=== PATIENT | female | born 1960 | race Caucasian/White ===

== ENCOUNTER 2018-04-20 14:20 | Inpatient (IN) | payer OTHER ==
[~2018-04-20] VITALS: Ht 154.9 cm; Wt 69.9 kg
[2018-04-20 14:25] VITALS: BP 155/82
[2018-04-20] MEDS ORDERED: ASPIR 8181 MG PO (14:31)
[2018-04-20] MEDS ORDERED: LIPITOR40 MG PO (14:31)
[2018-04-20] MEDS ORDERED: PRINIVIL10 MG PO (14:31)
[2018-04-20] MEDS ORDERED: NITROGLYCERIN0.4 MG SUBLING (14:31)
[2018-04-20] MEDS ORDERED: LOPRESSOR25 PO (14:32)
[2018-04-20] MEDS ORDERED: OMEPRAZOLE 20 M20 M1 PO (14:32)
[2018-04-20 15:12] LABS: INFLUENZA A ANTIGEN None Detected (None Detect); INFLUENZA B ANTIGEN None Detected (None Detect)
[2018-04-20 15:40] LABS: ABSOLUTE BASOPHILS 0.1 thou/uL (0.0-0.2); ABSOLUTE EOSINOPHILS 0.2 thou/uL (0.0-0.7); ABSOLUTE LYMPHOCYTES 3.5 thou/uL (0.8-5.3); ABSOLUTE MONOCYTES 0.6 thou/uL (0.0-1.2); ABSOLUTE NEUTROPHILS 6.5 thou/uL (1.6-8.1); BASOPHILS 0.6 %; EOSINOPHILS 1.5 %; HEMATOCRIT 45.6 % (37.0-47.0); HEMOGLOBIN 15.8 gm/dL (12.0-15.0); LYMPHOCYTES 32.3 %; MCH 31.2 pg (26.0-34.0); MCHC 34.6 g/dL (28.0-37.0); MCV 90.3 fL (80.0-100.0); MONOCYTES 5.7 %; MPV 8.2 fl. (7.2-11.1); NUCLEATED RBCS 0 /100WBC; PLATELET COUNT* 289 thou/uL (150-400); POLYS 59.9 %; RBC 5.06 mil/uL (4.20-5.00); RDW-CV 13.1 % (10.5-14.5); WBC 10.8 thou/uL (4.0-11.0)
[2018-04-20 15:45] LABS: CALCIUM 9.4 mg/dL (8.5-10.1); CREATININE 0.8 mg/dL (0.6-1.3); POTASSIUM 4.1 mmol/L (3.5-5.1)
[2018-04-20 15:59] LABS: TOTAL BILIRUBIN 0.3 mg/dL (<0.1-1.0); TOTAL PROTEIN 7.4 g/dL (6.4-8.2)
[2018-04-20 20:40] VITALS: BP 119/71
[2018-04-20 22:00] VITALS: BP 100/71
[2018-04-21] VITALS: BP 106/65
[2018-04-21 04:00] VITALS: BP 114/62
--- NOTE | 2018-04-21 04:04 | NUR ---
RECEIVED REPORT FROM ED RN. PT TRANSFERRED TO 218. PT A&OX4. VSS. ADMISSION HISTORY & PHYSICAL ASSESSMENT COMPLETED AND CHARTED. PT ON O2 AT 2L NC WITH 92% O2 SAT. PT TRACING SR ON TELE. PT UP ADLIB TO RESTROOM. ORIENTED TO ROOM & CALL LIGHT. FALL FORM SIGNED. PT RESTED WELL ON BED. HOURLY ROUNDING OBSERVED. CALL LIGHT WITHIN REACH.
[2018-04-21 08:00] VITALS: BP 125/69
--- NOTE | 2018-04-21 11:00 | NUR ---
ASSUMED CARE OF PATIENT THIS AM AT 0730. PATIENT IS ALERT AND ORIENTED X 4 THIS AM. SHE C/O A HEAD ACHE THIS AM. TELE SHOWS NSR. PATIENT IS UP IN THE ROOM, PATIENT TAKEN TO RADIOLOGY PER W/C FOR A CT AND RETURNED. PATIENT IS RESTING IN BED AT THIS TIME. NO FALLS OR INJURY.
[2018-04-21 12:20] VITALS: BP 121/59
[2018-04-21 15:46] VITALS: BP 105/37
[2018-04-21 20:00] VITALS: BP 95/85
[2018-04-22] VITALS: BP 95/54
[2018-04-22 04:00] VITALS: BP 88/60
[2018-04-22 05:00] VITALS: BP 94/62
--- NOTE | 2018-04-22 05:17 | NUR ---
ASSUMED CARE OF PT AFTER REPORT AT 1930. PT A&OX4. VSS. PHYSICAL ASSESSMENT COMPLETED AND CHARTED. PT ON RA WITH 92% O2 SAT. PT TRACING SR ON TELE. PT UP ADLIB TO RESTROOM. DENIES ANY PAIN OR SOA. PT RESTED WELL ON BED. HOURLY ROUNDING OBSERVED. CALL LIGHT WITHIN REACH.
[2018-04-22 07:52] VITALS: BP 99/63
[2018-04-22] MEDS ORDERED: CEFDINIR300 MG PO (09:59)
[2018-04-22] MEDS ORDERED: PREDNISONE 10 M10 M1 PO (09:59)
[2018-04-22] MEDS ORDERED: TESSALON PERLE100 MG PO (09:59)
[2018-04-22] MEDS ORDERED: VENTOLIN HFA 1818 GM INH (09:59)
[2018-04-22] MEDS ORDERED: AZITHROMYCIN 2250 MG PO (09:59)
[2018-04-22 10:06] LABS: HEMATOCRIT 41.5 % (37.0-47.0); HEMOGLOBIN 13.9 gm/dL (12.0-15.0); MCH 30.2 pg (26.0-34.0); MCHC 33.4 g/dL (28.0-37.0); MCV 90.6 fL (80.0-100.0); MPV 7.8 fl. (7.2-11.1); NUCLEATED RBCS 0 /100WBC; PLATELET COUNT* 282 thou/uL (150-400); RBC 4.59 mil/uL (4.20-5.00); RDW-CV 13.2 % (10.5-14.5)
[2018-04-22 10:10] LABS: CREATININE 0.9 mg/dL (0.6-1.3); MAGNESIUM 1.9 mg/dL (1.8-2.4); POTASSIUM 3.8 mmol/L (3.5-5.1)
[2018-04-22 10:42] VITALS: BP 99/63
[2018-04-22 10:54] LABS: ABSOLUTE BASOPHILS 0.2 thou/uL (0.0-0.2); ABSOLUTE LYMPHOCYTES 0.9 thou/uL (0.8-5.3); ABSOLUTE NEUTROPHILS 16.9 thou/uL (1.6-8.1); MACROCYTES Occasional; PLATELET ESTIMATE ADEQUATE
[2018-04-22 10:55] LABS: CLUMPED PLTS RARE
[2018-04-22 10:56] LABS: BURR CELLS 1+
[2018-04-22 10:57] LABS: POIKILOCYTOSIS 1+
--- NOTE | 2018-04-22 11:43 | NUR ---
ORDER RECEIVED TO DISCHARGEW PATIENT HOME TO SELF CARE. MED REC, MEDICATION EDUCATION, STROKE EDUCATION, ADN NEED FOR FOLLOW APPOINTMET WITH PRIMARY CARE WITHIN 1-2 WEEKS. IV AND TELEMTRY PACK REMOVED. PATIENT GIVEN AMPLE TIME TO DISCUSS MEDICATIONS AND HAVE ALL QUESTIONS ANSWERED. HOULRY ROUNDING COMPLETD FOR PATIENT SAFETY AND PATIENT IS IN NO APPARENT SIGNS OF DISTRESS AT THIS TIME. PATINET WILL BE TAKEN VIA WHEELCHAIR TO AWAITNG CAR BY NURSING STAFF AND WITH FAMILY PRESENT AT DISCHRGE.
--- NOTE | 2018-04-22 13:40 | EKG ---
[place] [address] ELECTROCARDIOGRAM REPORT Name: TUNDE COPELAND Room: [address] IN [facility].#: [id number] Admission: 04/20/18 Attend Phys: Amador Tamayo Discharge: 04/22/18 Date of : 64 Report #: [id number] THIS REPORT FOR: //name// [facility] ED Test Date: 2018-04-20 Test Time: 14:38:33 Pat Name: TUNDE COPELAND Department: Room: [facility] Gender: F Biotechnician: BALJEET : 1960 Requested By: Oksana Abrams Order Number: [id number] MD: Stuart Vaughan Measurements Intervals [place] Rate: 78 P: 43 [place]: 154 QRS: 79 QRSD: 90 T: -45 QT: 383 QTc: 437 Interpretive Statements Sinus rhythm Abnrm T, consider ischemia, anterolateral lds No previous ECG available for comparison Electronically Signed On 04-22-2018 13:39:53 TIRE STRIPPER by Stuart Vaughan [email or web address] <ELECTRONICALLY SIGNED> By: Stuart Vaughan MD, [facility] 04/22/18 1339 [id number] 1438 Stuart Vaughan MD, [facility] /EPI
== END 2018-04-22 12:00 | disposition home or self-care (01) | DRG 193 ==
LOC: M.ERS 14:20 → M.TBA-ER 18:15 → M.2W 18:15
PROVIDERS: Internal Medicine; Nurse Practitioner Family; ADMIT Internal Medicine
DX: J15.9 Unspecified bacterial pneumonia (principal); J96.01 Acute respiratory failure with hypoxia; J44.0 Chronic obstructive pulmonary disease with (acute) lower respiratory infection; J20.9 Acute bronchitis, unspecified; K21.9 Gastro-esophageal reflux disease without esophagitis; F17.210 Nicotine dependence, cigarettes, uncomplicated; I25.10 Atherosclerotic heart disease of native coronary artery without angina pectoris; Z79.899 Other long term (current) drug therapy; I25.2 Old myocardial infarction; Z95.5 Presence of coronary angioplasty implant and graft; Z79.82 Long term (current) use of aspirin; Z90.710 Acquired absence of both cervix and uterus; Z88.8 Allergy status to other drugs, medicaments and biological substances; Z91.011 Allergy to milk products

== ENCOUNTER → 2019-01-26 | Outpatient (CLI) | payer OTHER ==
[~2019-01-26] VITALS: Ht 154.9 cm; Wt 68.5 kg
[~2019-01-26] MED LIST: ASPIR 8181 MG PO; AZITHROMYCIN 2250 MG PO; CEFDINIR300 MG PO; LIPITOR40 MG PO; LOPRESSOR25 PO; NITROGLYCERIN0.4 MG SUBLING; OMEPRAZOLE 20 M20 M1 PO; PREDNISONE 10 M10 M1 PO; PRINIVIL10 MG PO; TESSALON PERLE100 MG PO; VENTOLIN HFA 1818 GM INH
[2019-01-26 07:57] VITALS: BP 110/67
[2019-01-26 08:24] LABS: HEMATOCRIT 44.3 % (37.0-47.0); HEMOGLOBIN 15.4 gm/dL (12.0-15.0); MCH 31.1 pg (26.0-34.0); MCHC 34.7 g/dL (28.0-37.0); MCV 89.6 fL (80.0-100.0); MPV 7.4 fl. (7.2-11.1); RBC 4.95 mil/uL (4.20-5.00); WBC 9.3 thou/uL (4.0-11.0)
[2019-01-26 08:35] LABS: ANION GAP 8 mmol/L (7-16); BUN 15 mg/dL (7-18); CALCIUM 8.9 mg/dL (8.5-10.1); CHLORIDE 105 mmol/L (98-107); CO2 29 mmol/L (21-32); CREATININE 0.7 mg/dL (0.6-1.3); GLUCOSE 100 mg/dL (70-99); POTASSIUM 4.1 mmol/L (3.5-5.1); SODIUM 142 mmol/L (136-145)
[2019-01-26 08:41] LABS: APTT 26.4 Seconds (25.0-31.3)
[2019-01-26 08:43] LABS: ALBUMIN 3.5 g/dL (3.4-5.0); ALKALINE PHOSPHATASE 110 U/L (46-116); CHOLESTEROL 144 mg/dL (<200); HDL CHOLESTEROL 52 mg/dL (>40); LDL CHOLESTEROL 77 mg/dL (<100); SERUM ASSESSMENT Clear; SGOT 16 U/L (15-37); SGPT 34 U/L (30-65); TC:HDL 2.8 Ratio (Not establshd); TOTAL BILIRUBIN 0.4 mg/dL (<0.1-1.0); TOTAL PROTEIN 6.8 g/dL (6.4-8.2); TRIGLYCERIDE 76 mg/dL (<150); VLDL 15 mg/dL (<40)
--- NOTE | 2019-01-26 11:11 | EKG ---
[place] [address] ELECTROCARDIOGRAM REPORT Name: TUNDE COPELAND Room: [facility]#: [id number] Admission: 01/26/19 Attend Phys: Mani Frazier MD Discharge: Date of : 64 Report #: [id number] THIS REPORT FOR: //name// [facility] Test Date: 2019-01-26 Test Time: 08:51:34 Pat Name: TUNDE COPELAND Department: Room: Gender: F Desktop Support Technician: : 1960 Requested By: Jus Falcon Order Number: [id number] Mervat MD: Mani Frazier Measurements Intervals [place] Rate: 56 P: 28 [place]: 163 QRS: 67 QRSD: 89 T: 10 QT: 437 QTc: 422 Interpretive Statements Sinus rhythm Nonspecific T abnormalities, diffuse leads Compared to ECG 04/20/2018 14:38:33 T-wave abnormality now present Possible ischemia no longer present Electronically Signed On 01-26-2019 11:11:07 CDT by Mani Frazier [email or web address] <ELECTRONICALLY SIGNED> By: Mani Frazier MD, [facility] 01/26/19 1111 D: 10850 0 Mani Frazeir MD, FAC /EPI
[2019-01-26 12:39] VITALS: BP 127/61
[2019-01-26 12:55] VITALS: BP 119/72
[2019-01-26 13:11] VITALS: BP 122/71
[2019-01-26 13:26] VITALS: BP 118/73
[2019-01-26 14:20] VITALS: BP 133/67
--- NOTE | 2019-01-27 16:43 | CARD ---
[address] [address] CARDIAC CATH REPORT Name: TUNDE COPELAND Jaun Room: [facility]#: [id number] Admission: 01/26/19 Attend Phys: Mani Frazier MD Discharge: Date of : 64 Report #: [id number] THIS REPORT FOR: //name// APPROVED REPORT Study performed: 01/26/2019 11:07:15 Patient Details Patient Status: Out-Patient Room #: The patient is a 58 year-old female Event Personnel Mani Frazier Linen Clerk, Marie Good RN RN, Leonides Givens [employer] Monitor, Lauren Retana RTR Scrub, Jose Guadalupe Rm [employer] Scrub Procedures Performed Art- Right Femoral Artery Access Diagnostic Left Heart Catheterization Hemostasis- Mynx Indication Chest pain Risk Factors Family History, Hypercholesterolemia, Hypertension, Tobacco History (Current every day user) Procedure Narrative The patient was brought electively to the Cardiac Catheterization Laboratory and was prepped and draped in a sterile manner. The right femoral was infiltrated with 1% Lidocaine subcutaneous anesthesia. A 6fr Ultimum Sheath sheath was inserted into the right femoral artery. Coronary angiography was performed using coronary diagnostic catheters. The right coronary system was accessed and visualized with a JR 4 6F catheter. The left coronary system was accessed and visualized with a JL 4 6F catheter. The left ventricle was accessed and visualized with a PIG 6F catheter. Closure device was deployed with a Fr Mynx 6f/7f. The patient tolerated the procedure well and there were no complications associated with the procedure. Intraoperative Conscious Sedation Sedation start time: 1145 Case end Time: 1204 Fentanyl 25 mcg Vers[place] [address] [place] [address] CARDIAC CATH REPORT Name: TUNDE COPELAND Room: [facility]#: [id number] Admission: 01/26/19 Attend Phys: Mani Frazier MD Discharge: Date of : 64 Report #: [id number] Fluoro Time: 1.2 minutes Dose: DAP 39243 cGycm2 236 mGy Contrast Type and Amount: Visipaque 75 ml Coronary Angiography The patient's coronary anatomy is right dominant. Diagnostic Cath Left Main The left main coronary artery is normal and bifurcates into a left anterior descending and circumflex coronary artery. LAD The left anterior descending coronary artery appears minimally plaqued proximally. The mid vessel appears normal there is tapering in mild plaquing of the distal vessel. Diagonal 1 The first diagonal branch is a moderate-sized vessel with mild plaquing proximally. Diagonal 2 The second diagonal vessel is a small vessel with no significant disease. Circumflex The circumflex coronary artery appears normal proximally and in the midportion. There is mild plaquing distally. OM1 The first obtuse marginal branch is a moderate-sized vessel that appears normal. OM2 The second obtuse marginal branch is a small to moderate size branch that appears normal. Right Coronary The right coronary artery exhibits mild plaquing proximally and distally. R PDA The PDA is small in caliber but appears free of significant disease. RPLV The posterior lateral LV branch is small in caliber but appears free of significant disease. Left Ventriculography The left ventricle is normal in size with normal contractility. The left ventricular ejection fraction is estimated to be 60%. Left ventricular wall motion abnormalities are not present. Hemodynamics The aortic pressure is 121/44 mmHg with a mean of 38 mmHg. The left ventricular pressure is 105/-3 mmHg with a mean of mmHg. The left ventricular end diastolic pressure is 4 mmHg. Conclusion 1. Minimal nonocclusive coronary artery disease as outlined above. 2. Normal left ventricular end-diastolic pressure. 3. Normal [place] [address] CARDIAC CATH REPORT Name: TUNDE COPELAND Room: [facility]#: [id number] Admission: 01/26/19 Attend Phys: Mani Frazier MD Discharge: Date of : 64 Report #: [id number] Recommendations 1. Continue aggressive risk factor modification. 2. Smoking cessation advised. <ELECTRONICALLY SIGNED> By: Mani Frazier MD, [facility] 01/27/19 1642 164 1642[facility] Frazier MD, FACC /INF
== END | disposition home or self-care (01) ==
LOC: M.CL 07:24
PROVIDERS: Internal Medicine
DX: R07.89 Other chest pain (principal); I25.10 Atherosclerotic heart disease of native coronary artery without angina pectoris; F17.210 Nicotine dependence, cigarettes, uncomplicated; I25.2 Old myocardial infarction; J44.9 Chronic obstructive pulmonary disease, unspecified; Z88.8 Allergy status to other drugs, medicaments and biological substances; Z79.899 Other long term (current) drug therapy